=== PATIENT | male | born 1985 | race African-American/Black ===

== ENCOUNTER 2017-06-03 16:18 | Emergency (ER) | payer MEDICAID ==
--- NOTE | 2017-06-03 18:22 | ER Document Report ---
ED Medical Screen (RME) - General Chief Complaint: Abdominal Pain Stated Complaint: ABDOMINAL PAIN Time Seen by Provider: 06/03/17 18:20 Notes: Patient reports abdominal pain with some vomiting for a week. He now has epigastric and central chest pain. He denies any chronic medical problems or previous surgeries. TRAVEL OUTSIDE OF THE [place] IN LAST 30 DAYS: No - Related Data Allergies/Adverse Reactions: Penicillins Allergy (Verified 03/09/16 09:31) Past Medical History - Social History Frequency of alcohol use: Occasional Drug Abuse: None - Past Medical History Cardiac Medical History: Reports: Hx Hypertension - no meds Endocrine Medical History: Reports: Hx Diabetes Mellitus Type 2 Renal/ Medical History: Denies: Hx Peritoneal Dialysis Psychiatric Medical History: Reports: Hx Bipolar Disorder, Hx Depression - Immunizations Immunizations up to date: Yes Hx Diphtheria, Pertussis, Tetanus Vaccination: Yes Physical Exam - Vital signs Vitals: Temp Pulse Resp BP Pulse Ox 98.5 F 64 18 147/96 H 97 06/03/17 16:50 06/03/17 16:50 06/03/17 16:50 06/03/17 16:50 06/03/17 16:50 Course - Vital Signs Vital signs: Temp Pulse Resp BP Pulse Ox 98.5 F 64 18 147/96 H 97 06/03/17 16:50 06/03/17 16:50 06/03/17 18:14 06/03/17 16:50 06/03/17 16:50
--- NOTE | 2017-06-03 19:12 | EKG REPORT ---
SEVERITY:- ABNORMAL ECG - SINUS OR ECTOPIC ATRIAL RHYTHM SHORT SC INTERVAL, ACCELERATED AV CONDUCTION BORDERLINE LEFT AXIS DEVIATION NONSPECIFIC T ABNORMALITIES, INFERIOR LEADS : Confirmed by: Misael Wilkerson 03-Jun-2017 19:12:07
[2017-06-03 19:34] LABS: ABSOLUTE EOSINOPHILS # (AUTO) 0.1 10^3/uL (0.0-0.6); ABSOLUTE LYMPHOCYTES (AUTO) 1.2 10^3/uL (0.5-4.7); ABSOLUTE MONOCYTES (AUTO) 0.5 10^3/uL (0.1-1.4); ABSOLUTE NEUT (AUTO) 4.6 10^3/uL (1.7-8.2); BASOPHILS % (AUTO) 0.5 % (0-2); HEMATOCRIT 41.1 % (37.9-51.0); HEMOGLOBIN 13.5 g/dL (13.5-17.0); HGB HCT DIFFERENCE -0.6; MEAN CORPUSCULAR HEMOGLOBIN 26.4 pg (27.0-33.4); MEAN CORPUSCULAR HGB CONC 32.9 g/dL (32.0-36.0); MEAN CORPUSCULAR VOLUME 80 fl (80-97); MONOCYTES % (AUTO) 7.9 % (3-13); RED BLOOD COUNT 5.12 10^6/uL (4.35-5.55); RED CELL DISTRIBUTION WIDTH 14.8 % (11.5-14.0); SEGMENTED NEUTROPHILS % (AUTO) 71.6 % (42-78); WHITE BLOOD COUNT 6.5 10^3/uL (4.0-10.5)
[2017-06-03 19:53] LABS: ALANINE AMINOTRANSFERASE 80 U/L (21-72); ALBUMIN 3.9 g/dL (3.5-5.0); ALKALINE PHOSPHATASE 67 U/L (38-126); ANION GAP 12 (5-19); ASPARTATE AMINO TRANSFERASE 29 U/L (17-59); BILIRUBIN,DIRECT 0.4 mg/dL (0.0-0.4); BILIRUBIN,TOTAL 0.6 mg/dL (0.2-1.3); BLOOD UREA NITROGEN 7 mg/dL (7-20); CALCIUM 9.6 mg/dL (8.4-10.2); CARBON DIOXIDE 29 mmol/L (22-30); CHLORIDE 104 mmol/L (98-107); GLUCOSE 95 mg/dL (75-110); LIPASE 47.6 U/L (23-300); POTASSIUM 4.3 mmol/L (3.6-5.0); SODIUM 144.5 mmol/L (137-145); TOTAL PROTEIN 6.5 g/dL (6.3-8.2)
[2017-06-03] MEDS ORDERED: ONDANSETRON 4 MG TAB.RAPDIS PO ONE (19:57)
[2017-06-03] MEDS ORDERED: SUCRALFATE 1 GM TABLET PO ONE (19:58)
[2017-06-03] MEDS ORDERED: FAMOTIDINE 20 MG TABLET PO ONE (19:58)
--- NOTE | 2017-06-03 19:58 | ER Document Report ---
ED GI/ - General Chief Complaint: Abdominal Pain Stated Complaint: ABDOMINAL PAIN Time Seen by Provider: 06/03/17 18:20 Notes: Patient is a 31-year-old male that comes emergency department for chief complaint of almost 1 week of chest pain, he points to his epigastric and mid abdomen for the locations of pain, when I pointed to his chest area he denies pain in this location, he states he has had vomiting but not today, he reports frequent nausea, frequent belching, and frequent discomfort. He denies that symptoms are worse with eating. He had a normal bowel movement earlier today. He denies fevers or chills, shortness of breath, cough. Past medical history of hypertension, bipolar disorder, he is medicated for hypertension. He denies any surgeries. He smokes, he denies alcohol, denies recreational drugs. TRAVEL OUTSIDE OF THE [place] IN LAST 30 DAYS: No - Related Data Allergies/Adverse Reactions: Penicillins Allergy (Verified 03/09/16 09:31) Past Medical History - General Information source: Patient - Social History Smoking Status: Current Every Day Smoker Smoking Education Provided: Yes - <3 min Frequency of alcohol use: Occasional Drug Abuse: None Lives with: Family Family History: Reviewed & Not Pertinent Patient has suicidal ideation: No Patient has homicidal ideation: No - Past Medical History Cardiac Medical History: Reports: Hx Hypertension - no meds Renal/ Medical History: Denies: Hx Peritoneal Dialysis Psychiatric Medical History: Reports: Hx Bipolar Disorder, Hx Depression - Immunizations Immunizations up to date: Yes Hx Diphtheria, Pertussis, Tetanus Vaccination: Yes Review of Systems - Review of Systems Constitutional: No symptoms reported EENT: No symptoms reported Cardiovascular: No symptoms reported Respiratory: No symptoms reported Gastrointestinal: See HPI Genitourinary: No symptoms reported Male Genitourinary: No symptoms reported Musculoskeletal: No symptoms reported Skin: No symptoms reported Hematologic/Lymphatic: No symptoms reported Neurological/Psychological: No symptoms reported Physical Exam - Vital signs Vitals: Temp Pulse Resp BP Pulse Ox 98.5 F 64 18 147/96 H 97 06/03/17 16:50 06/03/17 16:50 06/03/17 16:50 06/03/17 16:50 06/03/17 16:50 Interpretation: Normal - General General appearance: Appears well, Alert In distress: None - HEENT Head: Normocephalic, Atraumatic Eyes: Normal Pupils: PERRL - Respiratory Respiratory status: No respiratory distress Chest status: Nontender Breath sounds: Normal Chest palpation: Normal - Cardiovascular Rhythm: Regular Heart sounds: Normal auscultation Murmur: No - Abdominal Inspection: Normal Distension: No distension Bowel sounds: Normal Tenderness: Tender - Minimal tenderness in the left upper quadrant, no epigastric tenderness noted, remaining abdomen is benign and unremarkable Organomegaly: No organomegaly - Back Back: Normal, Nontender. No: Tender, CVA tenderness - Extremities General upper extremity: Normal inspection, Nontender, Normal color, Normal ROM , Normal temperature General lower extremity: Normal inspection, Nontender, Normal color, Normal ROM , Normal temperature, Normal weight bearing. No: Chuck's sign - Neurological Neuro grossly intact: Yes Cognition: Normal Orientation: AAOx4 Robi Coma Scale Eye Opening: Spontaneous Robi Coma Scale Verbal: Oriented [place] Coma Scale Motor: Obeys Commands [place] Coma Scale Total: 15 Speech: Normal Motor strength normal: LUE, RUE, LLE, RLE Sensory: Normal - Psychological Associated symptoms: Normal affect, Normal mood - Skin Skin Temperature: Warm Skin Moisture: Dry Skin Color: Normal Course - Re-evaluation Re-evalutation: Patient with mild epigastric and left upper quadrant tenderness on my examination, belching frequently, does not appear to be in any distress. Very unremarkable abdomen otherwise, clear lungs, no pain over his chest. EKG showing isolated T-wave inversion inferiorly with EKG showing no significant change from prior. Cardiac enzyme was checked from triage and he is negative despite symptoms ongoing for almost a week. Very low suspicion of any cardiac etiology for patient's symptoms. CBC unremarkable, chemistry generally unremarkable except for creatinine of 1.4 which is changed from prior, I did discuss this with patient, recommended continued blood pressure medication and routine primary care follow-up on this. Lipase is not elevated. Patient's examination is consistent with esophagitis/ gastritis/small bowel source of his symptoms, discussed treatment recommendations for this, giving doses now, discussed treatment at home, follow- up, return precautions in detail, patient states understanding and agreement. - Vital Signs Vital signs: Temp Pulse Resp BP Pulse Ox 98.5 F 75 18 157/84 H 99 06/03/17 16:50 06/03/17 21:04 06/03/17 18:14 06/03/17 21:04 06/03/17 21:04 - Laboratory Result Diagrams: 06/03/17 19:10 06/03/17 19:10 Laboratory results interpreted by me: 06/03/17 06/03/17 19:10 19:10 MCH 26.4 L RDW 14.8 H Creatinine 1.40 H Est GFR (Non-Af Amer) 59 L ALT 80 H Discharge - Discharge Clinical Impression: Upper abdominal pain, Belching Nausea and vomiting Qualifiers: Vomiting type: unspecified Vomiting Intractability: non-intractable Qualified Code(s): R11.2 - Nausea with vomiting, unspecified Condition: Stable Disposition: HOME, SELF-CARE Additional Instructions: Your workup does not show any concerning abnormalities other than slightly elevated kidney functioning compared to prior, follow-up with your primary care provider for additional monitoring of this. Your symptoms and examination are consistent with gastritis/upper abdominal inflammation, recommendation is to take the Carafate, Pepcid as prescribed, take Phenergan if needed for nausea, avoid caffeine, NSAIDs, spicy food, stop smoking, avoid alcohol. Follow-up with primary care for evaluation and management of this as well. Return to emergency department if you worsen including vomiting blood, increased pain, black bowel movements, or any other concerning symptoms. Prescriptions: Famotidine [Pepcid 20 mg Tablet] 20 mg PO BID #20 tablet Promethazine HCl [Phenergan 25 mg Tablet] 1 - 2 tab PO Q6H PRN #15 tablet PRN Reason: Sucralfate [Carafate 1 gm Tablet] 1 gm PO QID #20 tablet Referrals: ANGELIQUE STPALETON PA-C [Primary Care Provider] - Follow up as needed
[2017-06-03 21:05] VITALS: BP 157/84
== END 2017-06-03 21:04 | disposition home or self-care (01) ==
LOC: ER 16:18
DX: R10.10 Upper abdominal pain, unspecified (principal); R11.2 Nausea with vomiting, unspecified; F17.210 Nicotine dependence, cigarettes, uncomplicated; Z88.0 Allergy status to penicillin
CPT/HCPCS: 93005; 99284; 36415; 83690; 85025; 80053; 84484; 93010; J3490 ×2; S0119

== ENCOUNTER 2017-08-19 15:41 | Emergency (ER) | payer MEDICAID ==
[2017-08-19] MEDS ORDERED: ACETAMINOPHEN 325 MG TABLET PO ONE (17:02)
[2017-08-19] MEDS ORDERED: CLINDAMYCIN HCL 150 MG CAPSULE PO ONE (17:02)
--- NOTE | 2017-08-19 17:04 | ER Document Report ---
HPI - HPI Patient complains to provider of: Toothache Pain Level: 4 Context: Patient is a 32-year-old male presents emergency department complaining of toothache for 2 days. Denies any difficulty chewing, swallowing, difficulty breathing, any swelling followed or drainage. Patient denies any previous toothache in the past. Patient states that he does not have a dentist but does have Medicaid. Has not taken anything at home for the pain - CONSTITUTIONAL Constitutional: DENIES: Fever, Chills - EENT EENT: DENIES: Sore Throat, Ear Pain, Eye problems - NEURO Neurology: DENIES: Headache, Weakness, Vision blurred, Dizzinesss / Vertigo - CARDIOVASCULAR Cardiovascular: DENIES: Chest pain - RESPIRATORY Respiratory: DENIES: Trouble Breathing, Coughing - GASTROINTESTINAL Gastrointestinal: DENIES: Abdominal Pain, Black / Bloody Stools - URINARY Urinary: DENIES: Dysuria, Urgency, Frequency - MUSCULOSKELETAL Musculoskeletal: DENIES: Extremity pain Past Medical History - Social History Smoking Status: Current Every Day Smoker Chew tobacco use (# tins/day): No Frequency of alcohol use: None Drug Abuse: Marijuana Family History: Reviewed & Not Pertinent Patient has suicidal ideation: No Patient has homicidal ideation: No - Past Medical History Cardiac Medical History: Reports: Hx Hypertension - no meds Endocrine Medical History: Reports: Hx Diabetes Mellitus Type 2 Renal/ Medical History: Denies: Hx Peritoneal Dialysis Psychiatric Medical History: Reports: Hx Bipolar Disorder, Hx Depression - Immunizations Immunizations up to date: Yes Hx Diphtheria, Pertussis, Tetanus Vaccination: Yes Vertical Provider Document - CONSTITUTIONAL Agree With Documented VS: Yes Notes: PHYSICAL EXAM GENERAL: Alert, interacts well. MMM, Uvula midline. Airway patent. No evidence of tonsillar enlargement, peritonsillar abscess, retropharyngeal abscess. Evidence of dental caries over teeth 31 and 32 without any gingival inflammation, tenderness, abscess NEUROLOGICAL: Alert and oriented x4. Normal speech. PSYCH: Normal affect, normal mood. SKIN: Warm, dry, normal turgor. No rashes or lesions noted. - INFECTION CONTROL TRAVEL OUTSIDE OF THE [place] IN LAST 30 DAYS: No - RESPIRATORY O2 Sat by Pulse Oximetry: 98 Course - Re-evaluation Re-evalutation: 08/19/17 17:02 Presentation is most consistent with likely an infected tooth. Airway is patent. Vitals within normal limits. Patient is able swallow without any difficulty. There is no significant facial swelling. Patient will be started on antibiotics. I've instructed to follow-up with dentistry as earliest ability for definitive management. Return precautions and follow-up recommendations have been discussed at length. - Vital Signs Vital signs: Temp Pulse Resp BP Pulse Ox 98.8 F 75 18 155/94 H 98 08/19/17 15:46 08/19/17 15:46 08/19/17 15:46 08/19/17 15:46 08/19/17 15:46 Discharge - Discharge Clinical Impression: Toothache, Pre-hypertension Condition: Good Disposition: HOME, SELF-CARE Instructions: Acetaminophen, Use of Lkzu-Fgv-Ocdtvud Ibuprofen ([facility]) Additional Instructions: TOOTHACHE: Your pain is due to dental decay. The tooth must be repaired in order for you to feel better. You will, therefore, be referred to a dentist. We do not have dentists on the staff at [facility]. Severe swelling or drainage around a tooth usually means a dental abscess. This also requires evaluation and treatment by the dentist, but antibiotics may be prescribed while awaiting dental treatment. You should be rechecked immediately if you develop major swelling of the face, increasing pain, a lump in the jaw or gums, headache, difficulty swallowing, or fever. CLINDAMYCIN: You have been given a prescription for the antibiotic clindamycin. It is often prescribed for infections in the mouth, such as dental infections or abscesses, and for skin infections due to MRSA. It's important that you take all the medication, unless instructed otherwise by your physician. Failure to complete the entire course can result in relapse of your condition. Common side effects of antibiotics include nausea, intestinal cramping, or diarrhea. Women may develop vaginal yeast infections, and babies can get yeast (thrush) in the mouth following the use of antibiotics. Contact your physician if you develop significant side effects from this medication. Allergy to this antibiotic can result in hives, wheezing, faintness, or itching. If symptoms of allergy occur, stop the medication and call the doctor. FOLLOW-UP CARE: You have been referred for follow-up care to the dentists listed below. Call the dentists office for an appointment as you were instructed or within the next two days. If you experience worsening or a significant change in your symptoms, notify the physician immediately or return to the Emergency Department at any time for re-evaluation. [facility] [address] [place], [place] Daniel mornings, by appointment [facility] [address] [place] [address] Formerly [facility] [address] [facility] [address] [facility] [address] [email or web address] [address] [place] [address] Saturday- 8:00am to 5:00 pm Will see patients from other [facility]. Charges based on income and family size and accepts Medicare, Medicaid, and Insurances Will pull molars [facility] [id number] Hours of Operation 8:00 am - 4:30 pm weekdays The following dental offices accept Medicaid: [facility] Dr. Mayes Dr. Hogan Dr. Corona Dr. Nicholson Jerry Ruiz Lutsavage, and [facility] Dr. Almanza ([place]) Dr. Ryan ([place]) [facility] Drs. Jc and Vern ([place]) Dr. Riddle ([place]) [facility] Dr. Phillips ([place]) Drs. Scott and Scholar ([place]) Medicaid Care Line Prescriptions: Clindamycin HCl 450 mg PO TID 7 Days capsule Forms: Elevated Blood Pressure Referrals: MICHEAL PAINTER MD [ACTIVE STAFF] - Follow up as needed
[2017-08-19 17:22] VITALS: BP 151/92
== END 2017-08-19 17:19 | disposition home or self-care (01) ==
LOC: ER 15:41
DX: K08.9 Disorder of teeth and supporting structures, unspecified (principal); R03.0 Elevated blood-pressure reading, without diagnosis of hypertension; F17.200 Nicotine dependence, unspecified, uncomplicated; E11.9 Type 2 diabetes mellitus without complications
CPT/HCPCS: 99282; J3490 ×2

== ENCOUNTER 2018-03-01 11:07 | Emergency (ER) | payer MEDICARE, MEDICAID ==
[2018-03-01] MEDS ORDERED: ONDANSETRON 4 MG TAB.RAPDIS PO ONE (12:07)
[2018-03-01 12:47] LABS: ABSOLUTE EOSINOPHILS # (AUTO) 0.2 10^3/uL (0.0-0.6); ABSOLUTE LYMPHOCYTES (AUTO) 0.8 10^3/uL (0.5-4.7); ABSOLUTE MONOCYTES (AUTO) 0.3 10^3/uL (0.1-1.4); ABSOLUTE NEUT (AUTO) 2.5 10^3/uL (1.7-8.2); EOSINOPHILS % (AUTO) 5.2 % (0-6); HEMATOCRIT 35.1 % (37.9-51.0); HEMOGLOBIN 11.1 g/dL (13.5-17.0); LYMPHOCYTES % (AUTO) 21.3 % (13-45); MEAN CORPUSCULAR HEMOGLOBIN 22.7 pg (27.0-33.4); MEAN CORPUSCULAR HGB CONC 31.5 g/dL (32.0-36.0); MEAN CORPUSCULAR VOLUME 72 fl (80-97); MONOCYTES % (AUTO) 7.6 % (3-13); PLATELET COUNT 348 10^3/uL (150-450); RED BLOOD COUNT 4.86 10^6/uL (4.35-5.55); RED CELL DISTRIBUTION WIDTH 18.5 % (11.5-14.0); SEGMENTED NEUTROPHILS % (AUTO) 64.9 % (42-78); TOTAL CELLS COUNTED % (AUTO) 100 %; WHITE BLOOD COUNT 3.9 10^3/uL (4.0-10.5)
[2018-03-01 13:10] LABS: ALANINE AMINOTRANSFERASE 32 U/L (21-72); ALBUMIN 3.4 g/dL (3.5-5.0); ALKALINE PHOSPHATASE 41 U/L (38-126); ANION GAP 10 (5-19); ASPARTATE AMINO TRANSFERASE 38 U/L (17-59); BILIRUBIN,DIRECT 0.2 mg/dL (0.0-0.4); BILIRUBIN,TOTAL 0.3 mg/dL (0.2-1.3); BLOOD UREA NITROGEN 11 mg/dL (7-20); CALCIUM 8.6 mg/dL (8.4-10.2); CARBON DIOXIDE 26 mmol/L (22-30); CHLORIDE 109 mmol/L (98-107); GLUCOSE 118 mg/dL (75-110); LIPASE 66.4 U/L (23-300); POTASSIUM 4.1 mmol/L (3.6-5.0); SODIUM 144.6 mmol/L (137-145)
--- NOTE | 2018-03-01 13:30 | ER Document Report ---
ED General - General Chief Complaint: Chest Pain Stated Complaint: VOMITING/CHEST PAINS Time Seen by Provider: 03/01/18 12:04 TRAVEL OUTSIDE OF THE [place] IN LAST 30 DAYS: No - HPI Patient complains to provider of: Epigastric abdominal pain chest pain nausea vomiting Notes: Patient localized pain in the epigastric lower chest region states ongoing since he started nausea and having vomiting. Patient denies any fever chills diarrhea. Patient states multiple sick contacts. Patient resting comfortably upon my evaluation. No recent travel no recent antibiotics. - Related Data Allergies/Adverse Reactions: Penicillins Allergy (Verified 03/01/18 11:07) Past Medical History - Social History Smoking Status: Current Every Day Smoker Chew tobacco use (# tins/day): No Frequency of alcohol use: None Drug Abuse: None Family History: Reviewed & Not Pertinent Patient has suicidal ideation: No Patient has homicidal ideation: No - Past Medical History Cardiac Medical History: Reports: Hx Hypertension - no meds Endocrine Medical History: Reports: Hx Diabetes Mellitus Type 2 Renal/ Medical History: Denies: Hx Peritoneal Dialysis Psychiatric Medical History: Reports: Hx Bipolar Disorder, Hx Depression - Immunizations Immunizations up to date: Yes Hx Diphtheria, Pertussis, Tetanus Vaccination: Yes Review of Systems - Review of Systems Constitutional: No symptoms reported EENT: No symptoms reported Cardiovascular: No symptoms reported Respiratory: No symptoms reported Gastrointestinal: Abdominal pain, Nausea, Vomiting Genitourinary: No symptoms reported Male Genitourinary: No symptoms reported Musculoskeletal: No symptoms reported Skin: No symptoms reported Hematologic/Lymphatic: No symptoms reported Neurological/Psychological: No symptoms reported -: Yes All other systems reviewed and negative Physical Exam - Vital signs Vitals: Temp Pulse Resp BP Pulse Ox 97.4 F 65 18 143/95 H 96 03/01/18 11:22 03/01/18 11:22 03/01/18 11:22 03/01/18 11:22 03/01/18 11:22 Interpretation: Normal - General General appearance: Appears well, Alert - HEENT Head: Normocephalic, Atraumatic Eyes: Normal Pupils: PERRL - Respiratory Respiratory status: No respiratory distress Chest status: Nontender Breath sounds: Normal Chest palpation: Normal - Cardiovascular Rhythm: Regular Heart sounds: Normal auscultation Murmur: No - Abdominal Inspection: Normal Distension: No distension Bowel sounds: Normal Tenderness: Tender - Mild tenderness epigastric region reproduces the patient's pain Organomegaly: No organomegaly - Back Back: Normal, Nontender - Extremities General upper extremity: Normal inspection, Nontender, Normal color, Normal ROM , Normal temperature General lower extremity: Normal inspection, Nontender, Normal color, Normal ROM , Normal temperature, Normal weight bearing. No: Chuck's sign - Neurological Neuro grossly intact: Yes Cognition: Normal Orientation: AAOx4 Robi Coma Scale Eye Opening: Spontaneous Robi Coma Scale Verbal: Oriented [place] Coma Scale Motor: Obeys Commands Robi Coma Scale Total: 15 Speech: Normal Motor strength normal: LUE, RUE, LLE, RLE Sensory: Normal - Psychological Associated symptoms: Normal affect, Normal mood - Skin Skin Temperature: Warm Skin Moisture: Dry Skin Color: Normal Course - Re-evaluation Re-evalutation: 03/01/18 20:12 The patient presents with abdominal pain without signs of peritonitis or other life-threatening or serious etiology. The patient appears stable for discharge and has been instructed to return immediately if the symptoms worsen in any way , or in 8-12hr if not improved for re-evaluation. The patient has been instructed to return if the symptoms worsen or change in any way. - Vital Signs Vital signs: Temp Pulse Resp BP Pulse Ox 98.5 F 69 18 154/95 H 99 03/01/18 14:11 03/01/18 14:11 03/01/18 14:11 03/01/18 14:11 03/01/18 14:11 - Laboratory Result Diagrams: 03/01/18 12:20 03/01/18 12:20 Laboratory results interpreted by me: 03/01/18 03/01/18 12:20 12:20 WBC 3.9 L Hgb 11.1 L Hct 35.1 L MCV 72 L MCH 22.7 L MCHC 31.5 L RDW 18.5 H Chloride 109 H Glucose 118 H Total Protein 6.0 L Albumin 3.4 L Discharge - Discharge Clinical Impression: Epigastric abdominal pain Vomiting Qualifiers: Vomiting type: unspecified Vomiting Intractability: unspecified Nausea presence : unspecified Qualified Code(s): R11.10 - Vomiting, unspecified Condition: Good Disposition: HOME, SELF-CARE Instructions: Abdominal Pain ([facility]), Chest Wall Pain ([facility]), Vomiting ([facility]) Additional Instructions: Your laboratory studies not show any critical pathology for your symptoms today. More likely you have underlying virus. Would recommend taking medication as prescribed Zofran for any nausea Pepcid to help out with any pain that she may be having. Return to ER symptoms worsen. He may also take Tylenol for your pain. Prescriptions: Famotidine [Pepcid] 20 mg PO BID #30 tablet Ondansetron [Zofran Odt] 4 mg PO Q6 PRN #30 tab.rapdis PRN Reason: For Nausea/Vomiting Forms: Return to Work Referrals: ANGELIQUE STAPLETON PA-C [Primary Care Provider] - Follow up as needed
[2018-03-01 14:12] VITALS: BP 154/95
--- NOTE | 2018-03-02 22:58 | EKG REPORT ---
SEVERITY:- BORDERLINE ECG - SINUS RHYTHM LEFT AXIS DEVIATION BORDERLINE T ABNORMALITIES, INFERIOR LEADS : Confirmed by: Misael Wilkerson 02-Mar-2018 22:56:33
== END 2018-03-01 14:21 | disposition home or self-care (01) ==
LOC: ER 11:07
DX: R07.9 Chest pain, unspecified (principal); R10.13 Epigastric pain; R11.10 Vomiting, unspecified; F17.200 Nicotine dependence, unspecified, uncomplicated; I10 Essential (primary) hypertension; E11.9 Type 2 diabetes mellitus without complications; Z88.0 Allergy status to penicillin
CPT/HCPCS: 93005; 99285; 36415; 83690; 85025; 80053; 93010; A9270; S0119

== ENCOUNTER 2018-06-22 06:40 | Emergency (ER) | payer MEDICARE, MEDICAID ==
[2018-06-22] MEDS ORDERED: ONDANSETRON HCL INJ/PF 4 MG/2 ML SDV IV ONE (07:39)
[2018-06-22] MEDS ORDERED: NORMAL SALINE 500 ML IV ONE (07:40)
[2018-06-22 08:52] LABS: APPEARANCE,URINE SLIGHTLY-CLOUDY; BILIRUBIN,URINE NEGATIVE (NEGATIVE); COLOR,URINE YELLOW; GLUCOSE, URINE NEGATIVE (NEGATIVE); KETONES,URINE NEGATIVE (NEGATIVE); LEUKOCYTE ESTERASE,URINE NEGATIVE (NEGATIVE); NITRITE,URINE NEGATIVE (NEGATIVE); PROTEIN,URINE NEGATIVE (NEGATIVE); URINE SPECIFIC GRAVITY 1.025
--- NOTE | 2018-06-22 08:54 | RADIOLOGY REPORT (SQ) ---
EXAM DESCRIPTION: ACUTE ABDOMEN SERIES COMPLETED DATE/TIME: 06/22/2018 8:27 am REASON FOR STUDY: abd pain/constipation COMPARISON: None. NUMBER OF VIEWS: Three views. TECHNIQUE: Frontal chest, supine abdomen and upright/decubitus abdomen radiographic images acquired. LIMITATIONS: None. FINDINGS: CHEST: Lungs clear of infiltrates. FREE AIR: None. No abnormal gas collections. BOWEL GAS PATTERN: No dilated loops. Nonobstructive pattern. Mild stool in the descending colon. CALCIFICATIONS: No suspicious calcifications. HARDWARE: None in the abdomen. SOFT TISSUES: No gross mass or suggestion of organomegaly. BONES: No acute fracture. No worrisome bone lesions. OTHER: No other significant finding. IMPRESSION: NO RADIOGRAPHIC EVIDENCE FOR ACUTE ABDOMINAL DISEASE. TECHNICAL DOCUMENTATION: JOB ID: [id number] [employer]- All Rights Reserved Reading location - IP/workstation name: [email or web address]
[2018-06-22 08:57] LABS: ABSOLUTE EOSINOPHILS # (AUTO) 0.1 10^3/uL (0.0-0.6); ABSOLUTE MONOCYTES (AUTO) 0.6 10^3/uL (0.1-1.4); ABSOLUTE NEUT (AUTO) 5.1 10^3/uL (1.7-8.2); BASOPHILS % (AUTO) 0.4 % (0-2); EOSINOPHILS % (AUTO) 1.1 % (0-6); HEMATOCRIT 21.6 % (37.9-51.0); LYMPHOCYTES % (AUTO) 15.3 % (13-45); MEAN CORPUSCULAR HEMOGLOBIN 24.4 pg (27.0-33.4); MEAN CORPUSCULAR HGB CONC 32.3 g/dL (32.0-36.0); MEAN CORPUSCULAR VOLUME 76 fl (80-97); MONOCYTES % (AUTO) 8.3 % (3-13); PLATELET COUNT 327 10^3/uL (150-450); RED BLOOD COUNT 2.86 10^6/uL (4.35-5.55); RED CELL DISTRIBUTION WIDTH 17.8 % (11.5-14.0); SEGMENTED NEUTROPHILS % (AUTO) 74.9 % (42-78); TOTAL CELLS COUNTED % (AUTO) 100 %; WHITE BLOOD COUNT 6.8 10^3/uL (4.0-10.5)
[2018-06-22 09:06] LABS: ALANINE AMINOTRANSFERASE 24 U/L (21-72); ALBUMIN 3.5 g/dL (3.5-5.0); ALKALINE PHOSPHATASE 45 U/L (38-126); ANION GAP 9 (5-19); ASPARTATE AMINO TRANSFERASE 19 U/L (17-59); BILIRUBIN,DIRECT 0.2 mg/dL (0.0-0.4); BILIRUBIN,TOTAL 0.4 mg/dL (0.2-1.3); BLOOD UREA NITROGEN 17 mg/dL (7-20); CALCIUM 9.1 mg/dL (8.4-10.2); CARBON DIOXIDE 28 mmol/L (22-30); CHLORIDE 106 mmol/L (98-107); GLUCOSE 109 mg/dL (75-110); LIPASE 75.5 U/L (23-300); POTASSIUM 3.9 mmol/L (3.6-5.0); SODIUM 143.1 mmol/L (137-145); TOTAL PROTEIN 5.9 g/dL (6.3-8.2)
[2018-06-22 09:06] LABS: URINE AMPHETAMINES SCREEN NEGATIVE; URINE BARBITURATES SCREEN NEGATIVE; URINE BENZODIAZEPINES SCREEN NEGATIVE; URINE COCAINE SCREEN UNCONFIRMED POSITIVE; URINE MARIJUANA (THC) SCREEN UNCONFIRMED POSITIVE; URINE METHADONE SCREEN NEGATIVE; URINE PHENCYCLIDINE SCREEN NEGATIVE
[2018-06-22 09:57] LABS: HEMATOCRIT 21.2 % (37.9-51.0); MEAN CORPUSCULAR HEMOGLOBIN 24.1 pg (27.0-33.4); MEAN CORPUSCULAR HGB CONC 31.5 g/dL (32.0-36.0); MEAN CORPUSCULAR VOLUME 76 fl (80-97); PLATELET COUNT 290 10^3/uL (150-450); RED BLOOD COUNT 2.77 10^6/uL (4.35-5.55); RED CELL DISTRIBUTION WIDTH 17.7 % (11.5-14.0); WHITE BLOOD COUNT 6.5 10^3/uL (4.0-10.5)
[2018-06-22 10:17] LABS: HEMOGLOBIN 6.7 g/dL (13.5-17.0)
[2018-06-22] MEDS ORDERED: NORMAL SALINE 250 ML IV PRN ×2 (10:58)
[2018-06-22] MEDS ORDERED: PANTOPRAZOLE SODIUM 40 MG VIAL IV ONE (14:06)
[2018-06-22] MEDS ORDERED: PANTOPRAZOLE SODIUM 40 MG VIAL IV PRN (14:08)
[2018-06-22 14:38] LABS: ABSOLUTE EOSINOPHILS # (AUTO) 0.1 10^3/uL (0.0-0.6); ABSOLUTE LYMPHOCYTES (AUTO) 1.2 10^3/uL (0.5-4.7); ABSOLUTE MONOCYTES (AUTO) 0.5 10^3/uL (0.1-1.4); ABSOLUTE NEUT (AUTO) 4.9 10^3/uL (1.7-8.2); BASOPHILS % (AUTO) 0.3 % (0-2); EOSINOPHILS % (AUTO) 1.2 % (0-6); HEMATOCRIT 20.7 % (37.9-51.0); LYMPHOCYTES % (AUTO) 18.2 % (13-45); MEAN CORPUSCULAR HEMOGLOBIN 24.2 pg (27.0-33.4); MEAN CORPUSCULAR VOLUME 76 fl (80-97); PLATELET COUNT 280 10^3/uL (150-450); RED BLOOD COUNT 2.74 10^6/uL (4.35-5.55); RED CELL DISTRIBUTION WIDTH 17.5 % (11.5-14.0); SEGMENTED NEUTROPHILS % (AUTO) 73.3 % (42-78); TOTAL CELLS COUNTED % (AUTO) 100 %; WHITE BLOOD COUNT 6.6 10^3/uL (4.0-10.5)
[2018-06-22 14:41] LABS: HEMOGLOBIN 6.6 g/dL (13.5-17.0)
--- NOTE | 2018-06-22 15:43 | ER Document Report ---
ED GI/ <NADINE FINLEY - Last Filed: 06/22/18 20:04> - General Mode of Arrival: Ambulatory Information source: Patient - 15 oh TRAVEL OUTSIDE OF THE [place] IN LAST 30 DAYS: No - HPI Patient complains to provider of: Vomiting Onset: Last week Timing/Duration: Gradual, Persistent Quality of pain: Achy Severity at maximum: Mild Severity in ED: Mild Pain Level: 1 Context: denies: Bad food, Lifting, Out of the country travel, , Recent trauma, Other Location: Other - Diffuse abdominal discomfort nonspecific pain or location Sexual history: Inactive Associated symptoms: Vomiting. denies: Penile discharge Exacerbated by: Denies Relieved by: Denies Similar symptoms previously: No Recently seen / treated by doctor: No <SOFÍA ROSARIO - Last Filed: 06/22/18 20:27> - General Chief Complaint: Constipation Stated Complaint: NAUSEA Time Seen by Provider: 06/22/18 07:31 Notes: Patient is a well-nourished well-developed 32-year-old male comes emergency room complaining of constipation and nausea. Patient states that he started on Saturday with vomiting mostly liquid and then whatever food he ate would come up an hour or so after and digestion. He states he has not had a normal bowel movement in several days. He also states that he took one Dulcolax yesterday without any sufficient relief. He denies any abdominal pain and he denies any past medical history with exception of a psych history. He currently takes Abilify and Depakote he takes Depakote for schizophrenia. He has no history of seizures in his past. Currently today besides the nausea he has a little abdominal discomfort but nothing specific it just is an ache. (SOFÍA ROSARIO) - Related Data Allergies/Adverse Reactions: Penicillins Allergy (Verified 06/22/18 06:41) Past Medical History - General Information source: Patient - Social History Smoking Status: Current Some Day Smoker Chew tobacco use (# tins/day): No Frequency of alcohol use: Occasional Drug Abuse: None Family History: Reviewed & Not Pertinent Patient has suicidal ideation: No Patient has homicidal ideation: No - Past Medical History Cardiac Medical History: Reports: Hx Hypertension - no meds Endocrine Medical History: Reports: Hx Diabetes Mellitus Type 2 Renal/ Medical History: Denies: Hx Peritoneal Dialysis Psychiatric Medical History: Reports: Hx Bipolar Disorder, Hx Depression - Immunizations Immunizations up to date: Yes Hx Diphtheria, Pertussis, Tetanus Vaccination: Yes <SOFÍA ROSARIO - Last Filed: 06/22/18 20:27> Review of Systems - Review of Systems Constitutional: No symptoms reported EENT: No symptoms reported Cardiovascular: No symptoms reported Respiratory: No symptoms reported Gastrointestinal: Abdominal pain, Nausea, Vomiting, Constipation Genitourinary: No symptoms reported Male Genitourinary: No symptoms reported Musculoskeletal: No symptoms reported Skin: No symptoms reported Hematologic/Lymphatic: No symptoms reported Neurological/Psychological: No symptoms reported -: Yes All other systems reviewed and negative <SOFÍA ROSARIO - Last Filed: 06/22/18 20:27> Physical Exam <NADINE FINLEY - Last Filed: 06/22/18 20:04> - Vital signs Interpretation: Hypertensive <SOFÍA ROSARIO - Last Filed: 06/22/18 20:27> - Vital signs Vitals: Temp Pulse Resp BP Pulse Ox 98.4 F 91 18 145/83 H 100 06/22/18 06:43 06/22/18 06:43 06/22/18 06:43 06/22/18 06:43 06/22/18 06:43 - Notes Notes: PHYSICAL EXAMINATION: GENERAL: Well-appearing, well-nourished and in no acute distress. HEAD: Atraumatic, normocephalic. EYES: Pupils equal round and reactive to light, extraocular movements intact, sclera anicteric, conjunctiva are normal. ENT: Nares patent, oropharynx clear without exudates. Moist mucous membranes. NECK: Normal range of motion, supple without lymphadenopathy LUNGS: Breath sounds clear to auscultation bilaterally and equal. No wheezes rales or rhonchi. HEART: Regular rate and rhythm without murmurs ABDOMEN: Soft, nontender, nondistended abdomen. No guarding, no rebound. No masses appreciated. Musculoskeletal: Normal range of motion, no pitting or edema. No cyanosis. NEUROLOGICAL: Had some oozing. Normal speech, normal gait. Normal sensory, motor exams PSYCH: Normal mood, normal affect. SKIN: Warm, Dry, normal turgor, no rashes or lesions noted. (SOFÍA ROSARIO) Course - Laboratory Result Diagrams: 06/22/18 14:00 06/22/18 08:30 <NADINE FINLEY M - Last Filed: 06/22/18 20:04> - Laboratory Result Diagrams: 06/22/18 14:00 06/22/18 08:30 <SOFÍA ROSARIO - Last Filed: 06/22/18 20:27> - Re-evaluation Re-evalutation: 06/22/18 20:04 I have reassessed the patient. Transport is at bedtime and ready to bring the patient to [facility]. He is stable for transfer. No acute distress noted. (NADINE FINLEY) 06/22/18 15:50 Patient's presentation was anything but that of severe anemia. Patient was walking normally with no dizziness and still reports no dizziness at 6.7. The only symptom he has is drowsiness and he has been sleeping his entire time he has been here. Patient has been requested multiple times on alcohol and narcotics and he continues to decline in his feet and he does not do this up. He is also been questioning about NSAIDs and he does not take any over-the- counter things except occasional [place]. He is only admitted to some mild abdominal discomfort at the beginning of the week he did vomit some clear liquids for the first day or so and then after that has been nothing is just been nauseated. He does not state that he has had any coffee-ground emesis. [facility] and [facility] patient [facility]. She requested that we make sure that an H&H was drawn if he had left by 4:00 which we did his H&H has gone a little more depleted he was 6.7 and a hematocrit of 21.2 on the second draw he is gone down to 6.6 and 20.8 on the drug just before we started transfusion of the first unit. We will repeat a H&H if he still here after the first unit is in. I gave him my initial report to Dr. Kovacs over at [facility]. I did give her some inaccurate information to her and that was that patient had a negative UDS. I come to find out I looked at the long urine and patient had cocaine and marijuana in his urine drug screen. I went to talk to patient about the situation but mother was already present in the room and would not leave. 06/22/18 20:24 (MARLENE,SOFÍA T) - Vital Signs Vital signs: Temp Pulse Resp BP Pulse Ox 98.5 F 65 18 138/90 H 99 06/22/18 19:30 06/22/18 19:30 06/22/18 20:01 06/22/18 20:00 06/22/18 20:01 - Laboratory Laboratory results interpreted by me: 06/22/18 06/22/18 06/22/18 08:00 08:30 08:30 RBC 2.86 L Hgb 7.0 L Hct 21.6 L MCV 76 L MCH 24.4 L MCHC RDW 17.8 H Total Protein 5.9 L Urine Urobilinogen 4.0 H Crossmatch 06/22/18 06/22/18 06/22/18 09:36 10:50 14:00 RBC 2.77 L 2.74 L Hgb 6.7 L 6.6 L Hct 21.2 L 20.7 L MCV 76 L 76 L MCH 24.1 L 24.2 L MCHC 31.5 L RDW 17.7 H 17.5 H Total Protein Urine Urobilinogen Crossmatch See Detail Discharge <NADINE FINLEY M - Last Filed: 06/22/18 20:04> <SOFÍA ROSARIO - Last Filed: 06/22/18 20:27> - Discharge Condition: Stable Disposition: [facility] Referrals: ANGELIQUE STAPLETON PA-C [Primary Care Provider] - Follow up as needed
[2018-06-22 20:04] VITALS: BP 138/90
== END 2018-06-22 20:15 | disposition short-term general hospital (02) ==
LOC: ER 06:40
DX: D64.9 Anemia, unspecified (principal); R11.2 Nausea with vomiting, unspecified; K59.00 Constipation, unspecified; R10.9 Unspecified abdominal pain; F17.200 Nicotine dependence, unspecified, uncomplicated; I10 Essential (primary) hypertension; E11.9 Type 2 diabetes mellitus without complications; F20.9 Schizophrenia, unspecified; F31.9 Bipolar disorder, unspecified; Z79.899 Other long term (current) drug therapy; Z88.0 Allergy status to penicillin
CPT/HCPCS: 99285; 96361; 96375; 96365; 96366; 86900; 86901; 36415; 36430; 86850; 83690; 85025; 85027; 82272; 80053; 81001; 80307; 86920; 74022; P9016; C9113; J2405; J7040; S0164

== ENCOUNTER 2018-08-30 06:32 | Emergency (ER) | payer MEDICARE, MEDICAID ==
[2018-08-30 06:55] VITALS: BP 149/90
[2018-08-30] MEDS ORDERED: LIDOCAINE 1% INJ-PF (10 MG/ML) 30 ML SDV INJ ONE (08:04)
[2018-08-30] MEDS ORDERED: CEFTRIAXONE INJ 250 MG VIAL IM ONE (08:04)
[2018-08-30] MEDS ORDERED: AZITHROMYCIN 250 MG TABLET PO ONE (08:04)
--- NOTE | 2018-08-30 08:14 | ER Document Report ---
HPI - HPI Time Seen by Provider: 08/30/18 07:33 Quality of pain: No pain Pain Level: Denies Context: Patient is a 33-year-old male who presents to the emergency department with a chief complaint of exposure to an STD. He states that his primary sexual partner has another partner who tested positive for gonorrhea and chlamydia last night. He admits to multiple sexual partners himself. He denies any penile discharge, dysuria, pelvic pain, or abdominal pain. Associated Symptoms: None Exacerbated by: Denies Relieved by: Denies - ROS Systems Reviewed and Negative: Yes All other systems reviewed and negative Past Medical History - General Information source: Patient - Social History Smoking Status: Never Smoker Chew tobacco use (# tins/day): No Drug Abuse: Cocaine Family History: Reviewed & Not Pertinent Patient has suicidal ideation: No Patient has homicidal ideation: No - Past Medical History Cardiac Medical History: Reports: Hx Hypertension - no meds Endocrine Medical History: Reports: Hx Diabetes Mellitus Type 2 Renal/ Medical History: Denies: Hx Peritoneal Dialysis Psychiatric Medical History: Reports: Hx Bipolar Disorder, Hx Depression - Immunizations Immunizations up to date: Yes Hx Diphtheria, Pertussis, Tetanus Vaccination: Yes Vertical Provider Document - INFECTION CONTROL TRAVEL OUTSIDE OF THE [place] IN LAST 30 DAYS: No - HEENT HEENT: Atraumatic - NECK Neck: Normal Inspection - RESPIRATORY Respiratory: Breath Sounds Normal - CARDIOVASCULAR Cardiovascular: Regular Rate - GI/ABDOMEN Gastrointestinal: Abdomen Soft - MUSCULOSKELETAL/EXTREMETIES Musculoskeletal/Extremeties: FROM - NEURO Level of Consciousness: Awake, Alert, Appropriate Course - Re-evaluation Re-evalutation: The patient denies any symptoms right now. He will be tested for gonorrhea and chlamydia. I have spoke with the patient he agrees to be empirically treated with Rocephin and azithromycin. Verbal discharge instructions were given to the patient. They verbalized understanding. They are stable for discharge. - Vital Signs Vital signs: Temp Pulse Resp BP Pulse Ox 98.5 F 91 20 149/90 H 98 08/30/18 06:54 08/30/18 06:54 08/30/18 06:54 08/30/18 06:54 08/30/18 06:54 Discharge - Discharge Clinical Impression: Exposure to STD Condition: Stable Disposition: HOME, SELF-CARE Additional Instructions: You were seen today in the emergency department for an exposure to an STD. You have been tested for gonorrhea and chlamydia. You were also treated for gonorrhea and chlamydia. Please do not have sex for the next week. Please let all your sexual partners know that you have been tested for STDs, and tell them they need to be tested. If you develop a fever greater than 100.4 F, have pelvic pain, or have any symptoms that are worrisome to you, please return to the emergency department.
[2018-08-30 09:27] LABS: CHLAM PCR NOT DETECTED (NOT DETECT); GON PCR NOT DETECTED (NOT DETECT)
== END 2018-08-30 08:29 | disposition home or self-care (01) ==
LOC: ER 06:32
DX: Z20.2 Contact with and (suspected) exposure to infections with a predominantly sexual mode of transmission (principal); E11.9 Type 2 diabetes mellitus without complications; I10 Essential (primary) hypertension
CPT/HCPCS: 99283; 96372; 87491; 87591; A9270; J3490; J0696

== ENCOUNTER → 2018-10-10 | Outpatient (CLI) | payer MEDICARE, MEDICAID ==
[2018-10-10 09:57] LABS: HEMATOCRIT 28.5 % (37.9-51.0); HEMOGLOBIN 8.8 g/dL (13.5-17.0); MEAN CORPUSCULAR HEMOGLOBIN 19.3 pg (27.0-33.4); MEAN CORPUSCULAR HGB CONC 30.8 g/dL (32.0-36.0); PLATELET COUNT 354 10^3/uL (150-450); RED BLOOD COUNT 4.55 10^6/uL (4.35-5.55); RED CELL DISTRIBUTION WIDTH 20.6 % (11.5-14.0); WHITE BLOOD COUNT 3.8 10^3/uL (4.0-10.5)
[2018-10-10 10:15] LABS: ALANINE AMINOTRANSFERASE 32 U/L (21-72); ALBUMIN 4.2 g/dL (3.5-5.0); ALKALINE PHOSPHATASE 58 U/L (38-126); ANION GAP 9 (5-19); ASPARTATE AMINO TRANSFERASE 50 U/L (17-59); BILIRUBIN,DIRECT 0.2 mg/dL (0.0-0.4); BILIRUBIN,TOTAL 0.4 mg/dL (0.2-1.3); BLOOD UREA NITROGEN 18 mg/dL (7-20); CALCIUM 9.4 mg/dL (8.4-10.2); CARBON DIOXIDE 26 mmol/L (22-30); CHLORIDE 109 mmol/L (98-107); CHOLESTEROL 138.16 mg/dL (0-200); GLUCOSE 83 mg/dL (75-110); POTASSIUM 4.1 mmol/L (3.6-5.0); SODIUM 143.9 mmol/L (137-145); TOTAL PROTEIN 6.7 g/dL (6.3-8.2); TRIGLYCERIDES 116 mg/dL (<150)
[2018-10-10 10:21] LABS: ABSOLUTE LYMPHOCYTES# (MANUAL) 1.1 10^3/uL (0.5-4.7); ABSOLUTE MONOCYTES # (MANUAL) 0.5 10^3/uL (0.1-1.4); ABSOLUTE NEUTROPHILS# (MANUAL) 2.1 10^3/uL (1.7-8.2); BASOPHILS % (MANUAL) 1 % (0-2); EOSINOPHILS % (MANUAL) 4 % (0-6); LYMPHOCYTES % (MANUAL) 26 % (13-45); MONOCYTES % (MANUAL) 12 % (3-13); SEGMENTED NEUTROPHILS % (MAN) 55 % (42-78); TOTAL CELLS COUNTED 100
[2018-10-10 10:23] LABS: ANISOCYTOSIS 2+; HYPOCHROMASIA 1+; OVALOCYTES SLIGHT; PLATELET COMMENT ADEQUATE; POIKILOCYTOSIS SLIGHT
[2018-10-10 10:26] LABS: DIRECT LDL 64 mg/dL (<100)
[2018-10-10 10:31] LABS: FREE T4 (FREE THYROXINE) 1.23 ng/dL (0.78-2.19)
[2018-10-10 10:41] LABS: MEAN CORPUSCULAR VOLUME 63 fl (80-97)
[2018-10-10 10:45] LABS: THYROID STIMULATING HORMONE 0.91 uIU/mL (0.47-4.68)
[2018-10-13 15:36] LABS: PATH REVIEW PATHOLOGIST REVIEWED
== END ==
LOC: OD 08:40
PROVIDERS: ATTEND Nurse Practitioner Psychiatric/Mental Health
DX: Z79.899 Other long term (current) drug therapy (principal); F20.9 Schizophrenia, unspecified
CPT/HCPCS: 36415; 80053; 80061; 80164; 84439; 84443; 85025

== ENCOUNTER 2018-12-21 04:53 | Emergency (ER) | payer MEDICARE, MEDICAID ==
[2018-12-21 05:01] VITALS: BP 170/97
--- NOTE | 2018-12-21 05:17 | ER Document Report ---
ED GI Bleed / Rectal Pain - General Chief Complaint: Bloody Stools Stated Complaint: BLOOD IN STOOL Time Seen by Provider: 12/21/18 05:07 Primary Care Provider: KIMI HSIEH NP [Primary Care Provider] - Follow up as needed Notes: Patient is a 33-year-old male that comes to the emergency department for chief complaint of blood in his stool. He states he has had small amounts of bright red blood with that he notices when he wipes for the past couple of days intermittently. He also reports small amount of vague lower abdominal pain intermittently as well. He admits he is constipated. He denies vomiting, diar jeremy, fever/chills, flank pain. He does have a history of peptic ulcers, had blood transfusion and endoscopy for this over a year ago at [place]. Patient states he takes Depakote and Abilify, denies other medications. He admits to smoking cigarettes, using cocaine, reports infrequent alcohol. TRAVEL OUTSIDE OF THE [place] IN LAST 30 DAYS: No - Related Data Allergies/Adverse Reactions: Penicillins Allergy (Verified 12/21/18 05:55) Past Medical History - General Information source: Patient - Social History Smoking Status: Current Every Day Smoker Smoking Education Provided: Yes - <3 min Frequency of alcohol use: Occasional Drug Abuse: Cocaine Lives with: Alone Family History: Reviewed & Not Pertinent - Past Medical History Cardiac Medical History: Reports: Hx Hypertension - no meds Endocrine Medical History: Reports: Hx Diabetes Mellitus Type 2 Renal/ Medical History: Denies: Hx Peritoneal Dialysis Psychiatric Medical History: Reports: Hx Bipolar Disorder, Hx Depression - Immunizations Immunizations up to date: Yes Hx Diphtheria, Pertussis, Tetanus Vaccination: Yes Review of Systems - Review of Systems Constitutional: No symptoms reported EENT: No symptoms reported Cardiovascular: No symptoms reported Respiratory: No symptoms reported Gastrointestinal: See HPI Genitourinary: No symptoms reported Male Genitourinary: No symptoms reported Musculoskeletal: No symptoms reported Skin: No symptoms reported Hematologic/Lymphatic: No symptoms reported Neurological/Psychological: No symptoms reported Physical Exam - Vital signs Vitals: Temp Pulse Resp BP Pulse Ox 97.4 F 75 16 170/97 H 97 12/21/18 04:58 12/21/18 04:58 12/21/18 04:58 12/21/18 04:58 12/21/18 04:58 - Notes Notes: GENERAL: Alert, interacts well. No acute distress. HEAD: Normocephalic, atraumatic. EYES: Pupils equal, round, and reactive to light. Extraocular movements intact. ENT: Oral mucosa moist, tongue midline. Oropharynx unremarkable. Airway patent. NECK: Full range of motion. Supple. Trachea midline. LUNGS: Clear to auscultation bilaterally, no wheezes, rales, or rhonchi. No respiratory distress. HEART: Regular rate and rhythm. No murmur ABDOMEN: Soft, non-tender. Non-distended. Bowel sounds present in all 4 quadrants. GENITOURINARY: Deferred RECTAL: 2 internal hemorrhoids noted on exam, no current bleeding, there is small amount of hard stool in the rectal vault. No fissure or other abnormality noted. Unremarkable otherwise. Exam performed with Helen ANTONY at bedside. EXTREMITIES: Moves all 4 extremities spontaneously. No edema, normal radial and dorsalis pedis pulses bilaterally. No cyanosis. BACK: no cervical, thoracic, lumbar midline tenderness. No saddle anesthesia, normal distal neurovascular exam. NEUROLOGICAL: Alert and oriented x3. Normal speech. Cranial nerves II through XII grossly intact. PSYCH: Normal affect, normal mood. SKIN: Warm, dry, normal turgor. No rashes or lesions noted. Course - Re-evaluation Re-evalutation: Patient is well-appearing on exam, sleeping, easily aroused. He is hypertensive but otherwise his labs are unremarkable. Soft benign abdomen without tenderness at this time. Rectal examination consistent with internal hemorrhoids but no external hemorrhoids, fissure, abscess, current bleeding, or other abnormality noted. Suspect internal hemorrhoids are the source of patient's recent bleeding. He is constipated. Patient also admits to smoking, cocaine, intermittent upper gastrointestinal system symptoms, and history of peptic ulcers and GI bleed. I discussed the dangers of this, possibility of recurrence, possibility of other severe/lethal outcomes from his substance abuse. Patient does state understanding and agreement. CBC shows hemoglobin 8.8, however this is consistent with previous hemoglobin in October. Chemistry unremarkable. Hemoccult is negative. Discussed with patient, patient will be treated with Colace, famotidine, patient will follow-up with primary care, discussed return precautions. Patient states understanding and agreement. - Vital Signs Vital signs: Temp Pulse Resp BP Pulse Ox 97.4 F 75 16 170/97 H 97 12/21/18 04:58 12/21/18 04:58 12/21/18 04:58 12/21/18 04:58 12/21/18 04:58 - Laboratory Result Diagrams: 12/21/18 05:20 12/21/18 05:20 Laboratory results interpreted by me: 12/21/18 12/21/18 05:20 05:20 WBC 3.4 L Hgb 8.8 L Hct 28.9 L MCV 64 L MCH 19.4 L MCHC 30.3 L RDW 21.3 H Chloride 108 H Discharge - Discharge Clinical Impression: Blood in stool Condition: Stable Disposition: HOME, SELF-CARE Additional Instructions: Your evaluation is consistent with internal hemorrhoids, this is most likely the cause of your bleeding. Eat a high-fiber diet. Take the stool softener as prescribed. Avoid straining on the toilet. In regards to your history of peptic ulcers and occasional symptoms with eating, I recommend that you take the famotidine as prescribed, avoid things that will c ause inflammation in the stomach including alcohol, and NSAIDs, smoking, cocaine, spicy food, caffeine. Follow-up with primary care for additional management. Return if you worsen including heavy bleeding, vomiting, vomiting blood, severe worsening abdominal pain, or any other concerning symptoms. Prescriptions: Docusate Sodium [Colace 100 mg Capsule] 100 mg PO ASDIR PRN #30 capsule PRN Reason: Famotidine [Pepcid 20 mg Tablet] 20 mg PO BID #20 tablet Forms: Return to Work Referrals: KIMI HSIEH NP [Primary Care Provider] - Follow up as needed
[2018-12-21 05:40] LABS: HEMATOCRIT 28.9 % (37.9-51.0); HEMOGLOBIN 8.8 g/dL (13.5-17.0); MEAN CORPUSCULAR HEMOGLOBIN 19.4 pg (27.0-33.4); MEAN CORPUSCULAR HGB CONC 30.3 g/dL (32.0-36.0); MEAN CORPUSCULAR VOLUME 64 fl (80-97); PLATELET COUNT 320 10^3/uL (150-450); RED BLOOD COUNT 4.52 10^6/uL (4.35-5.55); RED CELL DISTRIBUTION WIDTH 21.3 % (11.5-14.0); WHITE BLOOD COUNT 3.4 10^3/uL (4.0-10.5)
[2018-12-21 05:58] LABS: ANION GAP 8 (5-19); BLOOD UREA NITROGEN 16 mg/dL (7-20); CARBON DIOXIDE 26 mmol/L (22-30); CHLORIDE 108 mmol/L (98-107); GLUCOSE 91 mg/dL (75-110); POTASSIUM 3.9 mmol/L (3.6-5.0); SODIUM 141.9 mmol/L (137-145)
[2018-12-21 06:00] LABS: ABSOLUTE LYMPHOCYTES# (MANUAL) 1.2 10^3/uL (0.5-4.7); ABSOLUTE MONOCYTES # (MANUAL) 0.3 10^3/uL (0.1-1.4); ABSOLUTE NEUTROPHILS# (MANUAL) 1.8 10^3/uL (1.7-8.2); BASOPHILS % (MANUAL) 0 % (0-2); EOSINOPHILS % (MANUAL) 4 % (0-6); LYMPHOCYTES % (MANUAL) 34 % (13-45); MONOCYTES % (MANUAL) 8 % (3-13); PLATELET COMMENT ADEQUATE; SEGMENTED NEUTROPHILS % (MAN) 53 % (42-78); TOTAL CELLS COUNTED 100
[2018-12-21 06:03] LABS: ANISOCYTOSIS 2+; HYPOCHROMASIA 3+; POLYCHROMASIA SLIGHT; SCHISTOCYTES SLIGHT; TARGET CELLS SLIGHT
== END 2018-12-21 06:05 | disposition home or self-care (01) ==
LOC: ER 04:53
DX: K92.1 Melena (principal); K59.00 Constipation, unspecified; K64.8 Other hemorrhoids; R10.30 Lower abdominal pain, unspecified; E11.9 Type 2 diabetes mellitus without complications; I10 Essential (primary) hypertension; F14.10 Cocaine abuse, uncomplicated; F17.210 Nicotine dependence, cigarettes, uncomplicated; F31.9 Bipolar disorder, unspecified; Z79.899 Other long term (current) drug therapy; Z87.11 Personal history of peptic ulcer disease
CPT/HCPCS: 36415; 80048; 85025; 99283

== ENCOUNTER 2019-02-09 05:55 | Emergency (ER) | payer MEDICARE, MEDICAID ==
[2019-02-09 07:11] LABS: ABSOLUTE EOSINOPHILS # (AUTO) 0.1 10^3/uL (0.0-0.6); ABSOLUTE LYMPHOCYTES (AUTO) 0.9 10^3/uL (0.5-4.7); ABSOLUTE MONOCYTES (AUTO) 0.4 10^3/uL (0.1-1.4); ABSOLUTE NEUT (AUTO) 2.4 10^3/uL (1.7-8.2); BASOPHILS % (AUTO) 0.6 % (0-2); EOSINOPHILS % (AUTO) 1.5 % (0-6); HEMATOCRIT 31.6 % (37.9-51.0); HEMOGLOBIN 9.8 g/dL (13.5-17.0); LYMPHOCYTES % (AUTO) 23.9 % (13-45); MEAN CORPUSCULAR HEMOGLOBIN 20.1 pg (27.0-33.4); MEAN CORPUSCULAR VOLUME 65 fl (80-97); MONOCYTES % (AUTO) 9.5 % (3-13); PLATELET COUNT 337 10^3/uL (150-450); RED BLOOD COUNT 4.87 10^6/uL (4.35-5.55); RED CELL DISTRIBUTION WIDTH 20.7 % (11.5-14.0); SEGMENTED NEUTROPHILS % (AUTO) 64.5 % (42-78); TOTAL CELLS COUNTED % (AUTO) 100 %; WHITE BLOOD COUNT 3.8 10^3/uL (4.0-10.5)
[2019-02-09 07:21] LABS: ALBUMIN 3.9 g/dL (3.5-5.0); ALKALINE PHOSPHATASE 50 U/L (38-126); ANION GAP 6 (5-19); ASPARTATE AMINO TRANSFERASE 32 U/L (17-59); BILIRUBIN,DIRECT 0.4 mg/dL (0.0-0.4); BILIRUBIN,TOTAL 0.6 mg/dL (0.2-1.3); BLOOD UREA NITROGEN 11 mg/dL (7-20); CALCIUM 8.9 mg/dL (8.4-10.2); CARBON DIOXIDE 27 mmol/L (22-30); CHLORIDE 109 mmol/L (98-107); CREATINE KINASE 472 U/L (55-170); GLUCOSE 105 mg/dL (75-110); POTASSIUM 4.1 mmol/L (3.6-5.0); SODIUM 141.9 mmol/L (137-145); TOTAL PROTEIN 6.4 g/dL (6.3-8.2)
[2019-02-09 07:25] LABS: ALANINE AMINOTRANSFERASE 22 U/L (21-72)
[2019-02-09 07:32] LABS: CREATINE KINASE MB 2.04 ng/mL (<4.55)
[2019-02-09 07:35] LABS: TROPONIN I < 0.012 ng/mL
[2019-02-09] MEDS ORDERED: MAG HYDROX/AL HYDROX/SIMETH SUSP 30 ML UDCUP PO ONE (08:36)
[2019-02-09] MEDS ORDERED: LIDOCAINE 2% VISCOUS SOLN 20 ML UDCUP PO ONE (08:37)
[2019-02-09] MEDS ORDERED: FAMOTIDINE 20 MG TABLET PO ONE (08:37)
--- NOTE | 2019-02-09 11:09 | ER Document Report ---
ED General - General Chief Complaint: Chest Pain Stated Complaint: CHEST PAIN Time Seen by Provider: 02/09/19 08:19 Primary Care Provider: YADIRA STAPLETON MD [Primary Care Provider] - Follow up as needed Mode of Arrival: Ambulatory TRAVEL OUTSIDE OF THE [place] IN LAST 30 DAYS: No - HPI Notes: Patient is a 33-year-old male history of gastritis and previous upper GI bleed with transfusion and endoscopy presents emergency department with report of midepigastric lower chest wall pain that he noted earlier today while at rest. The patient has had previous episodes of the same in the past. The patient is supposed to be on acid blockers but is currently not taking any. He reports no exertional chest pain or cough or dyspnea. He does report some belching. The patient denies any back pain nausea, vomiting, melena, constipation, diarrhea. No dysuria. No fever or chills. - Related Data Allergies/Adverse Reactions: Penicillins Allergy (Verified 12/21/18 05:55) Past Medical History - General Information source: Patient - Social History Smoking Status: Never Smoker Chew tobacco use (# tins/day): No Frequency of alcohol use: Occasional Drug Abuse: None Lives with: Family Family History: Reviewed & Not Pertinent Patient has suicidal ideation: No Patient has homicidal ideation: No - Past Medical History Cardiac Medical History: Reports: Hx Hypertension - no meds Endocrine Medical History: Reports: Hx Diabetes Mellitus Type 2 Renal/ Medical History: Denies: Hx Peritoneal Dialysis Psychiatric Medical History: Reports: Hx Bipolar Disorder, Hx Depression - Immunizations Immunizations up to date: Yes Hx Diphtheria, Pertussis, Tetanus Vaccination: Yes Review of Systems - Review of Systems -: Yes All other systems reviewed and negative Physical Exam - Vital signs Vitals: Temp Pulse Resp BP Pulse Ox 97.6 F 78 16 153/95 H 98 02/09/19 06:04 02/09/19 06:04 02/09/19 06:04 02/09/19 06:04 02/09/19 06:04 - Notes Notes: PHYSICAL EXAMINATION: GENERAL: Well-appearing, well-nourished and in no acute distress. HEAD: Atraumatic, normocephalic. EYES: Pupils equal round and reactive to light, extraocular movements intact, sclera anicteric, conjunctiva are normal. ENT: Nares patent, oropharynx clear without exudates. Moist mucous membranes. NECK: Normal range of motion, supple without lymphadenopathy LUNGS: Breath sounds clear to auscultation bilaterally and equal. No wheezes rales or rhonchi. HEART: Regular rate and rhythm without murmurs ABDOMEN: Soft, nondistended abdomen. No guarding, no rebound. No masses appreciated. Mildly tender through the midepigastric region of the abdomen. No rebound or guarding. No pulsatile mass. No obvious hepatosplenomegaly. Musculoskeletal: Normal range of motion, no pitting or edema. No cyanosis. NEUROLOGICAL: Cranial nerves grossly intact. Normal speech, normal gait. Normal sensory, motor exams PSYCH: Normal mood, normal affect. SKIN: Warm, Dry, normal turgor, no rashes or lesions noted. Course - Re-evaluation Re-evalutation: 02/09/19 11:11 Patient was given GI cocktail and Pepcid and had relief of his discomfort completely. Repeat exam was nontender. There is no clinical suggestion for significant GI bleed or pancreatitis or hepatitis or electrolyte imbalance or anemia. No evidence for acute IA or ischemia. Patient tolerated p.o. fluids and solids without difficulty. We will restart the patient's acid blockers and advised him to avoid anti-inflammatory medications. Follow-up for upper en doscopy and further evaluation if the pain continues. - Vital Signs Vital signs: Temp Pulse Resp BP Pulse Ox 97.6 F 78 21 H 144/95 H 93 02/09/19 06:04 02/09/19 06:04 02/09/19 07:01 02/09/19 07:01 02/09/19 07:01 - Laboratory Result Diagrams: 02/09/19 06:30 02/09/19 06:30 Laboratory results interpreted by me: 02/09/19 02/09/19 06:30 06:30 WBC 3.8 L Hgb 9.8 L Hct 31.6 L MCV 65 L MCH 20.1 L MCHC 31.0 L RDW 20.7 H Chloride 109 H Creatine Kinase 472 H - EKG Interpretation by Nd EKG shows normal: Sinus rhythm Additional EKG results interpreted by me: 02/09/19 11:12 EKG is interpreted by id showed normal sinus rhythm heart rate of 75. There is no gross evidence for acute IA or ischemia. No change from prior EKG from 03/01/18. Discharge - Discharge Clinical Impression: Chest pain Qualifiers: Chest pain type: unspecified Qualified Code(s): R07.9 - Chest pain, unspecified Abdominal pain Qualifiers: Abdominal location: epigastric Qualified Code(s): R10.13 - Epigastric pain Gastritis Qualifiers: Gastritis type: unspecified gastritis Chronicity: unspecified Gastritis bleeding: without bleeding Qualified Code(s): K29.70 - Gastritis, unspecified, without bleeding Condition: Stable Disposition: HOME, SELF-CARE Additional Instructions: Jena diet and progress slowly. Drink plenty of fluids. Prescriptions: Omeprazole 40 mg PO DAILY #60 capsule.dr Forms: Return to Work Referrals: YADIRA STAPLETON MD [Primary Care Provider] - Follow up as needed CHAIM MARTINI MD [[facility]] - Follow up as needed
[2019-02-09 11:33] VITALS: BP 159/108
--- NOTE | 2019-02-10 00:32 | EKG REPORT ---
SEVERITY:- OTHERWISE NORMAL ECG - SINUS RHYTHM LEFT AXIS DEVIATION : Confirmed by: Misael Wilkerson 10-Feb-2019 00:32:33
== END 2019-02-09 11:33 | disposition home or self-care (01) ==
LOC: ER 05:55
DX: R07.9 Chest pain, unspecified (principal); R10.13 Epigastric pain; I10 Essential (primary) hypertension; E11.9 Type 2 diabetes mellitus without complications; Z88.0 Allergy status to penicillin
CPT/HCPCS: 93005; 99285; 36415; 82553; 82550; 83690; 85025; 80053; 84484; 93010; A9270; J3490

== ENCOUNTER 2019-04-05 00:06 | Emergency (ER) | payer MEDICARE, MEDICAID ==
[2019-04-05 00:20] VITALS: BP 168/94
[2019-04-05] MEDS ORDERED: IPRATROPIUM/ALBUTEROL 0.5-2.5 MG/3 ML AMPUL NEB ONE (02:13)
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
[2019-04-05] MEDS ORDERED: ALBUTEROL SULFATE HFA (90 MCG/PUFF) 8 GM MDI (1 MDI/ER DISP) IH PRN (03:08)
[2019-04-05] MEDS ORDERED: PREDNISONE 20 MG TABLET PO ONE (03:09)
== END 2019-04-05 03:47 | disposition home or self-care (01) ==
LOC: ER 00:06
DX: S05.11XA Contusion of eyeball and orbital tissues, right eye, initial encounter (principal); J98.01 Acute bronchospasm; H57.11 Ocular pain, right eye; Y04.2XXA Assault by strike against or bumped into by another person, initial encounter; Z88.0 Allergy status to penicillin; F17.210 Nicotine dependence, cigarettes, uncomplicated; I10 Essential (primary) hypertension; E11.9 Type 2 diabetes mellitus without complications
CPT/HCPCS: 99406; 94640; 99284; 71046; 70486; A9270 ×2; J3490; J7512; J7620

== ENCOUNTER 2019-04-11 00:52 | Emergency (ER) | payer MEDICARE, MEDICAID ==
[2019-04-11] MEDS ORDERED: ACETAMINOPHEN 325 MG TABLET PO ONE (02:47)
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
[2019-04-11 04:40] VITALS: BP 128/76
== END 2019-04-11 04:40 | disposition home or self-care (01) ==
LOC: ER 00:52
DX: S09.90XA Unspecified injury of head, initial encounter (principal); M25.512 Pain in left shoulder; R51 Headache; M54.2 Cervicalgia; F19.10 Other psychoactive substance abuse, uncomplicated; F14.10 Cocaine abuse, uncomplicated; Y04.0XXA Assault by unarmed brawl or fight, initial encounter; F17.210 Nicotine dependence, cigarettes, uncomplicated; I10 Essential (primary) hypertension; E11.9 Type 2 diabetes mellitus without complications
CPT/HCPCS: 99284; 73030; 70450; 72125; A9270

== ENCOUNTER 2019-04-25 09:22 | Emergency (ER) | payer MEDICARE, MEDICAID ==
[2019-04-25 09:36] VITALS: BP 149/94
[2019-04-25] MEDS ORDERED: LIDOCAINE 2% VISCOUS SOLN 20 ML UDCUP PO ONE (10:35)
--- NOTE | 2019-04-25 10:42 | ER Document Report ---
HPI - HPI Time Seen by Provider: 04/25/19 10:34 Pain Level: 4 Notes: Patient is a 49-year-old male who presents to the ED complaining of left upper dental pain #30 with mild swelling that started x2 days. He has not noticed any obvious abscess or purulent discharge. Patient states that he is still able to eat and drink, but does have a decreased p.o. intake due to the pain. He has tried some [id number] meds with minimal relief. No other concerns or complaints. Denies any headache, fever, head injury, neck pain, hoarseness, drooling, URI, sore throat, chest pain, palpitations, syncope, cough, shortness of breath, wheeze, dyspnea, abdominal pain, nausea/vomiting/diarrhea, urinary retention, dysuria, hematuria, or rash. - ROS Systems Reviewed and Negative: Yes All other systems reviewed and negative - CONSTITUTIONAL Constitutional: DENIES: Fever, Chills - EENT EENT: DENIES: Sore Throat, Ear Pain, Eye problems - NEURO Neurology: DENIES: Headache, Weakness, Vision blurred, Dizzinesss / Vertigo - CARDIOVASCULAR Cardiovascular: DENIES: Chest pain - RESPIRATORY Respiratory: DENIES: Trouble Breathing, Coughing - GASTROINTESTINAL Gastrointestinal: DENIES: Abdominal Pain, Black / Bloody Stools - URINARY Urinary: DENIES: Dysuria, Urgency, Frequency - MUSCULOSKELETAL Musculoskeletal: DENIES: Extremity pain Past Medical History - Social History Smoking Status: Current Every Day Smoker Chew tobacco use (# tins/day): No Frequency of alcohol use: None Drug Abuse: Cocaine Family History: Reviewed & Not Pertinent Patient has suicidal ideation: No Patient has homicidal ideation: No - Past Medical History Cardiac Medical History: Reports: Hx Hypertension - no meds Endocrine Medical History: Reports: Hx Diabetes Mellitus Type 2 Renal/ Medical History: Denies: Hx Peritoneal Dialysis Psychiatric Medical History: Reports: Hx Bipolar Disorder, Hx Depression - Immunizations Immunizations up to date: Yes Hx Diphtheria, Pertussis, Tetanus Vaccination: Yes Vertical Provider Document - CONSTITUTIONAL Agree With Documented VS: Yes Notes: PHYSICAL EXAMINATION: GENERAL: Well-appearing, well-nourished and in no acute distress. HEAD: Atraumatic, normocephalic. EYES: Pupils equal round and reactive to light, extraocular movements intact, sclera anicteric, conjunctiva are normal. ENT: EAC clear b/l. TM's intact b/l without erythema, fluid, or perforation. Nares patent and without discharge. oropharynx clear without exudates. No tonsilar hypertrophy or erythema. Moist mucous membranes. No sinus tenderness. Uvula midline. No palatine shift. No tongue protrusion. No respiratory compromise. Mouth: Poor dentition. + mild decay, dental caries, and mild gingivitis. No obvious abscess or discharge noted. No facial swelling. + tenderness to tooth #30. NECK: Normal range of motion, supple without lymphadenopathy. No rigidity/meningismus. LUNGS: Breath sounds clear to auscultation bilaterally and equal. No wheezes rales or rhonchi. HEART: Regular rate and rhythm without murmurs, rubs, gallops. NEUROLOGICAL: Normal speech, normal gait. Normal sensory, motor exams PSYCH: Normal mood, normal affect. SKIN: Warm, Dry, normal turgor, no rashes or lesions noted. - INFECTION CONTROL TRAVEL OUTSIDE OF THE [place] IN LAST 30 DAYS: No Course - Re-evaluation Re-evalutation: 04/25/19 10:40 Patient is an afebrile, well-hydrated, 33-year-old male who presents to the ED with dental pain, suspect nerve root etiology versus infection. Vitals are acceptable. PE is otherwise unremarkable. No I&D, labs, or imaging warranted at this time based on H&P. Viscous lidocaine dispensed today. I will send him home with a prescription for cleocin. Low suspicion for any meningitis, sepsis, peritonsillar/pharyngeal abscess, respiratory compromise, Andrei's, temporal arteritis, or other emergent systemic condition at this time. Patient is aware this condition can change from initial presentation and he needs to monitor symptoms closely. Conservative measures otherwise for symptoms. Call to schedule an appointment with a dentist for further evaluation and management. Recheck with your PCM this week as well. Return to the ED with any worsening/concerning symptoms otherwise as reviewed in discharge. Patient is in agreement. - Vital Signs Vital signs: Temp Pulse Resp BP Pulse Ox 98.6 F 73 16 149/94 H 97 04/25/19 09:35 04/25/19 09:35 04/25/19 09:35 04/25/19 09:35 04/25/19 09:35 Discharge - Discharge Clinical Impression: Pain, dental Condition: Stable Disposition: HOME, SELF-CARE Instructions: Clindamycin ([facility]), Toothache ([facility]) Additional Instructions: [place] and floss twice daily Maintain fluid intake Take antibiotics as directed Mouthwash, salt water gargles, peroxide rinse as needed Tylenol/ibuprofen as needed Recheck with PCM this week Call today/tomorrow and schedule an appointment with your dentist for further evaluation Return to the ED with any worsening symptoms and/or development of fever, headache, facial swelling, swelling of lips/tongue/throat, trouble swallowing, drooling, hoarseness, neck pain/stiffness, chest pain, palpitations, syncope, shortness of breath, trouble breathing, abdominal pain, n/v/d, numbness/tingling, or other worsening symptoms that are concerning to you. Prescriptions: Clindamycin HCl [Cleocin 300 mg Capsule] 300 mg PO TID #30 capsule Ibuprofen [Motrin 800 mg Tablet] 800 mg PO Q8H PRN #15 tab PRN Reason: Forms: Elevated Blood Pressure, Smoking Cessation Education Referrals: ANGELIQUE STAPLETON PA-C [Primary Care Provider] - Follow up as needed [facility] [Provider Group] - Follow up as needed
== END 2019-04-25 11:02 | disposition home or self-care (01) ==
LOC: ER 09:22
DX: K02.9 Dental caries, unspecified (principal); K05.10 Chronic gingivitis, plaque induced; K08.89 Other specified disorders of teeth and supporting structures; I10 Essential (primary) hypertension; E11.9 Type 2 diabetes mellitus without complications; F17.200 Nicotine dependence, unspecified, uncomplicated; F14.10 Cocaine abuse, uncomplicated
CPT/HCPCS: 99282; 96374; J3490

== ENCOUNTER 2019-07-04 11:31 | Emergency (ER) | payer MEDICARE, MEDICAID ==
[2019-07-04] MEDS ORDERED: ALBUTEROL SULFATE HFA (90 MCG/PUFF) 8 GM MDI (1 MDI/ER DISP) IH ONE (11:46)
[2019-07-04] MEDS ORDERED: METHYLPREDNISOLONE INJ 125 MG/2 ML SDV IM ONE (11:46)
[2019-07-04 11:57] VITALS: BP 171/81
--- NOTE | 2019-07-04 12:06 | ER Document Report ---
HPI - HPI Time Seen by Provider: 07/04/19 11:41 Pain Level: Denies Notes: Patient is a 33-year-old male with history of tobacco abuse who presents complaining of semi-productive cough that began this morning and has been relatively constant with some wheezing and tightness associated only with the cough. No SOB or LOPES. Patient states that he has had this before and needed an inhaler which worked well for him. He has had chills and some mild congestion to his nose. He is otherwise urinating normally and having normal bowel movements. Denies any prolonged immobilization, distance travel, recent surgery/trauma, personal cancer history, hormone use, or previous DVT/PE. Denies any headache, fever, neck pain, sore throat, palpitations, syncope, shortness of breath, dyspnea, abdominal pain, nausea/vomiting/diarrhea, urinary retention, dysuria, hematuria, or rash. - ROS Systems Reviewed and Negative: Yes All other systems reviewed and negative - REPRODUCTIVE Reproductive: DENIES: : Past Medical History - Social History Smoking Status: Current Every Day Smoker Chew tobacco use (# tins/day): No Frequency of alcohol use: None Drug Abuse: None Family History: Reviewed & Not Pertinent Patient has suicidal ideation: No Patient has homicidal ideation: No - Past Medical History Cardiac Medical History: Reports: Hx Hypertension - no meds Endocrine Medical History: Reports: Hx Diabetes Mellitus Type 2 Renal/ Medical History: Denies: Hx Peritoneal Dialysis Psychiatric Medical History: Reports: Hx Bipolar Disorder, Hx Depression - Immunizations Immunizations up to date: Yes Hx Diphtheria, Pertussis, Tetanus Vaccination: Yes Vertical Provider Document - CONSTITUTIONAL Agree With Documented VS: Yes Notes: PHYSICAL EXAMINATION: GENERAL: Well-appearing, well-nourished and in no acute distress. HEAD: Atraumatic, normocephalic. EYES: Pupils equal round and reactive to light, extraocular movements intact, sclera anicteric, conjunctiva are normal. ENT: Nares patent and with clear discharge. oropharynx clear without exudates. No tonsilar hypertrophy or erythema. Moist mucous membranes. NECK: Normal range of motion, supple without lymphadenopathy LUNGS: Breath sounds clear to auscultation bilaterally and equal. No wheezes rales or rhonchi. HEART: Regular rate and rhythm without murmurs, rubs, gallops. ABDOMEN: Soft, nontender, nondistended abdomen. No guarding, no rebound. Normal bowel sounds present. No CVA tenderness bilaterally. Musculoskeletal: FROM to passive/active. Strength 5+/5. Chuck neg. No asymmetry to LE's. Extremities: No cyanosis, clubbing, or edema b/l. Peripheral pulses 2+. Capillary refill less than 3 seconds. NEUROLOGICAL: Normal speech, normal gait. PSYCH: Normal mood, normal affect. SKIN: Warm, Dry, normal turgor, no rashes or lesions noted. - INFECTION CONTROL TRAVEL OUTSIDE OF THE [place] IN LAST 30 DAYS: No Course - Re-evaluation Re-evalutation: 07/04/19 Patient is an afebrile, well-hydrated, 33-year-old male who presents with an acute URI/cough, suspect viral. Vitals are acceptable without significant tachycardia, tachypnea, or hypoxia. PE is otherwise unremarkable. Patient is nontoxic-appearing and is tolerating p.o. without difficulty. EKG and chest x- ray unremarkable. Albuterol dispensed inhaler provided today. Patient does not have any chest pain aside from when he is coughing. He has no shortness of breath or dyspnea on exertion associated. Pt is Wells negative and PERC negative. Low suspicion for any ACS, PE, pneumothorax, pericarditis, dissection, respiratory compromise, severe dehydration, sepsis, meningitis, pneumonia, or other systemic emergent condition at this time. Patient is aware that condition can change from initial presentation and he needs to monitor symptoms closely and seek medical attention for any acute changes. Recommend conservative measures for symptoms. Recheck with your PCM in 3-5 days. Return to the ED with any worsening/concerning symptoms otherwise as reviewed in discharge. Patient is in agreement. - Vital Signs Vital signs: Temp Pulse Resp BP Pulse Ox 97.9 F 85 19 171/81 H 97 07/04/19 11:36 07/04/19 11:36 07/04/19 11:36 07/04/19 11:36 07/04/19 11:36 Discharge - Discharge Clinical Impression: Acute URI, Cough Condition: Stable Disposition: HOME, SELF-CARE Instructions: Upper Respiratory Illness ([facility]) Additional Instructions: Maintain adequate fluid intake tylenol/ibuprofen as needed alternating every 3 hours for fever/body ache over the counter cold medication as needed for symptoms Humidified air may help Wash your hands regularly Wear a mask when coughing F/u: with your PCM in 3-5 days for a recheck Return to the ED with any fever, altered mental status/behavior, chest pain, palpitations, syncope, headache, neck pain/stiffness, shortness of breath, chest pains, wheezing, drooling, trouble swallowing/breathing, abdominal pain, n/v/d, rash, or worsening/concerning symptoms otherwise. Forms: Elevated Blood Pressure, Smoking Cessation Education Referrals: ANGELIQUE STAPLETON PA-C [Primary Care Provider] - Follow up in 3-5 days
--- NOTE | 2019-07-04 12:53 | RADIOLOGY REPORT (SQ) ---
EXAM DESCRIPTION: CHEST 2 VIEWS COMPLETED DATE/TIME: 07/04/2019 12:18 pm REASON FOR STUDY: cough COMPARISON: 04/05/2019 EXAM PARAMETERS: NUMBER OF VIEWS: two views TECHNIQUE: Digital Frontal and Lateral radiographic views of the chest acquired. RADIATION DOSE: NA LIMITATIONS: none FINDINGS: LUNGS AND PLEURA: No opacities, masses or pneumothorax. No pleural effusion. MEDIASTINUM AND HILAR STRUCTURES: No masses or contour abnormalities. HEART AND VASCULAR STRUCTURES: Heart normal size. No evidence for failure. BONES: No acute findings. HARDWARE: None in the chest. OTHER: No other significant finding. IMPRESSION: NO ACUTE RADIOGRAPHIC FINDING IN THE CHEST. TECHNICAL DOCUMENTATION: JOB ID: [id number] All Rights Reserved Reading location - IP/workstation name: [email or web address]
--- NOTE | 2019-07-04 17:26 | EKG REPORT ---
SEVERITY:- ABNORMAL ECG - SINUS RHYTHM LEFT AXIS DEVIATION NONSPECIFIC T ABNORMALITIES, INFERIOR LEADS : Confirmed by: Jono Espitia MD 04-Jul-2019 17:25:38
== END 2019-07-04 13:09 | disposition home or self-care (01) ==
LOC: ER 11:31
DX: J06.9 Acute upper respiratory infection, unspecified (principal); R06.2 Wheezing; R07.9 Chest pain, unspecified; F17.200 Nicotine dependence, unspecified, uncomplicated; I10 Essential (primary) hypertension; E11.9 Type 2 diabetes mellitus without complications
CPT/HCPCS: 93005; 71046; 93010; J2930; A9270; 96372; 99285; J3490